=== PATIENT | female | born 1945 ===

== ENCOUNTER 2017-05-10 08:26 | Outpatient (CLI) | payer OTHER ==
[~2017-05-10] VITALS: Ht 152.4 cm; Wt 93.4 kg
== END 2017-05-10 08:45 | disposition home or self-care (01) ==
LOC: OFIC 805 08:26
DX: H90.3 Sensorineural hearing loss, bilateral (principal)

== ENCOUNTER → 2017-05-31 | Outpatient (CLI) | payer OTHER ==
[~2017-05-31] VITALS: Ht 152.4 cm; Wt 93.4 kg
== END | disposition home or self-care (01) ==
LOC: OFIC 805 08:25
DX: H90.3 Sensorineural hearing loss, bilateral (principal)